=== PATIENT | female | born 1985 | race Caucasian/White ===

== ENCOUNTER 2019-05-18 02:35 | Emergency (ER) | payer OTHER ==
[2019-05-18 02:56] VITALS: BP 114/71; PULSE 77; TEMP 97.9; BMI 22.6
[2019-05-18 03:19] LABS: URINE APPEARANCE CLEAR; URINE BILIRUBIN NEGATIVE (NEGATIVE); URINE COLOR YELLOW; URINE GLUCOSE (UA) NEGATIVE (NEGATIVE); URINE KETONE NEGATIVE (NEGATIVE); URINE LEUK ESTERASE 1+ (NEGATIVE); URINE NITRITE NEGATIVE (NEGATIVE); URINE PROTEIN NEGATIVE (NEGATIVE); URINE UROBILINOGEN 0.2 mg/dL (0.2-1.0)
--- NOTE | 2019-05-18 03:33 | PDOC ---
Attending Attestation - Resident Resident Name: David Finn - ED Attending Attestation I have performed the following: I have examined & evaluated the patient, The case was reviewed & discussed with the resident, I agree w/resident's findings & plan - HPI HPI: 05/18/19 04:24 33-year-old female with dysuria requesting antibiotics for early urinary tract action symptoms. No vomiting fever or flank pain. - Physicial Exam PE: 05/18/19 04:25 agree with resident's - Medical Decision Making 05/18/19 04:25 Urinalysis only with 1+ leukoesterase We will still treat due to frequency of UTIs and symptomatology Patient will follow up with primary care
[2019-05-18] MEDS ORDERED: SULFAMETHOXAZOLE/TRIMETHOPRIM 800MG/160MG D.S. TABLET PO ONE (04:21)
[2019-05-18] MEDS ORDERED: SULFAMETHOXAZOLE/TRIMETHOPRIM 800MG/160MG D.S. TABLET ONE (04:27)
--- NOTE | 2019-05-18 04:31 | PDOC ---
History of Present Illness - General Chief Complaint: Urinary Problem Stated Complaint: URINE BURNING Time Seen by Provider: 05/18/19 03:20 History Source: Patient Exam Limitations: No Limitations Past History - Past Medical History Allergies/Adverse Reactions: Allergies Allergy/AdvReac Type Severity Reaction Status Date / Time No Known Allergies Allergy Verified 05/18/19 02:56 Home Medications: Ambulatory Orders Sulfamethoxazole/Trimethoprim [Bactrim Ds -] 1 tab PO BID #14 tablet 05/18/19 COPD: No - Reproductive History Is Patient Now?: No Therapeutic (s) & number: No - Immunization History Immunization Up to Date: Yes - Suicide/Smoking/Psychosocial Hx Smoking History: Never smoked Have you smoked in the past 12 months: No Information on smoking cessation initiated: No Hx Alcohol Use: No Drug/Substance Use Hx: No *Physical Exam - Vital Signs Last Vital Signs Temp Pulse Resp BP Pulse Ox 97.9 F 77 20 114/71 97 05/18/19 02:45 05/18/19 02:45 05/18/19 02:45 05/18/19 02:45 05/18/19 02:45 ED Treatment Course - ADDITIONAL ORDERS Additional order review: Laboratory Results 05/18/19 05/18/19 02:57 02:57 Urine Color Yellow Urine Appearance Clear Urine pH 7.0 Ur Specific [place] 1.003 L Urine Protein Negative Urine Glucose (UA) Negative Urine Ketones Negative Urine Blood Negative Urine Nitrite Negative Urine Bilirubin Negative Urine Urobilinogen 0.2 Ur Leukocyte Esterase 1+ H Urine HCG, Qual Negative *DC/Admit/Observation/Transfer Diagnosis at time of Disposition: UTI (urinary tract infection) - Discharge Dispostion Disposition: HOME Condition at time of disposition: Stable Decision to Admit order: No - Prescriptions Prescriptions: Sulfamethoxazole/Trimethoprim [Bactrim Ds -] 1 tab PO BID #14 tablet - Referrals - Patient Instructions Printed Discharge Instructions: DI for Urinary Tract Infection (UTI) Additional Instructions: Please make an appointment with your primary doctor within the next 48 hours. Take the antibiotics as prescribed for your UTI. You may receive a phone call regarding the culture of your urine including drug sensitivities. Return to the ER for new or concerning symptoms including but not limited to: fevers, nausea/ vomiting, back pain, inability to eat or drink, abdominal pain. Thank you - Post Discharge Activity
== END 2019-05-18 04:37 | disposition home or self-care (01) ==
LOC: JER 02:35
DX: N39.0 Urinary tract infection, site not specified (principal)
CPT/HCPCS: 81003; 84703; 87086; 99282-25